=== PATIENT | female | born 1975 | race Caucasian/White ===

== ENCOUNTER 2019-10-30 14:33 | Emergency (ER) | payer OTHER ==
[~2019-10-30] VITALS: Ht 147.3 cm; Wt 99.8 kg
[~2019-10-30 14:33] MED LIST: BIRTH CONTROL PILL; CYMBALTA60 MG PO; PRILOSEC
[2019-10-30] MEDS ORDERED: COZAAR 25 MG TA25 M1 PO (14:40)
[2019-10-30] MEDS ORDERED: GERD MEDICATION (14:41)
[2019-10-30 15:07] LABS: ABSOLUTE EOSINOPHILS 0.3 thou/uL (0.0-0.7); ABSOLUTE LYMPHOCYTES 1.8 thou/uL (0.8-5.3); ABSOLUTE MONOCYTES 0.7 thou/uL (0.0-1.2); ABSOLUTE NEUTROPHILS 6.1 thou/uL (1.6-8.1); BASOPHILS 0.5 %; EOSINOPHILS 3.5 %; HEMATOCRIT 36.4 % (37.0-47.0); HEMOGLOBIN 11.6 gm/dL (12.0-15.0); LYMPHOCYTES 19.6 %; MCH 24.5 pg (26.0-34.0); MCHC 31.9 g/dL (28.0-37.0); MCV 76.9 fL (80.0-100.0); MONOCYTES 8.2 %; MPV 10.8 fl. (7.2-11.1); NUCLEATED RBCS 0 /100WBC; PLATELET COUNT* 224 thou/uL (150-400); POLYS 68.2 %; RBC 4.73 mil/uL (4.20-5.00); RDW-CV 15.2 % (10.5-14.5)
[2019-10-30 15:09] LABS: URINE BILIRUBIN NEGATIVE (Negative); URINE BLOOD TRACE (Negative); URINE CLARITY CLEAR; URINE COLOR YELLOW; URINE GLUCOSE-RANDOM NEGATIVE (Negative); URINE KETONES NEGATIVE (Negative); URINE LEUKOCYTES-REFLEX NEGATIVE (Negative); URINE NITRITE-REFLEX NEGATIVE (Negative); URINE PROTEIN NEGATIVE (Negative); URINE SPECIFIC GRAVITY <= 1.005 (1.005-1.030); URINE UROBILINOGEN 0.2 E.U./dl (0.2-1.0)
[2019-10-30 15:11] LABS: CALCIUM 8.6 mg/dL (8.5-10.1); CREATININE 1.1 mg/dL (0.6-1.3); POTASSIUM 3.5 mmol/L (3.5-5.1)
[2019-10-30 15:15] LABS: ALBUMIN 3.5 g/dL (3.4-5.0); APTT 26.8 Seconds (25.0-31.3); TOTAL BILIRUBIN 0.4 mg/dL (<0.1-1.0); TOTAL PROTEIN 8.4 g/dL (6.4-8.2)
--- NOTE | 2019-10-30 16:28 | EKG ---
[place] [address] ELECTROCARDIOGRAM REPORT Name: EVAN ACUNA Room: [facility]#: [id number] Admission: 10/30/19 Attend Phys: Discharge: Date of : 73 Date of Service: 10/30/19 1434 Report #: [id number] THIS REPORT FOR: //name// [facility] ED Test Date: 2019-10-30 Test Time: 14:34:45 Pat Name: EVAN ACUNA Department: Room: Gender: [employer] Dipper: SHANKAR : 1975 Requested By: Kimberly Cruz Order Number: [id number] MD: Varghese Díaz Measurements Intervals [place] Rate: 96 P: 45 [place]: 182 QRS: -8 QRSD: 100 T: 7 QT: 374 QTc: 473 Interpretive Statements Sinus rhythm Probable left atrial enlargement Abnormal R-wave progression, late transition Borderline ST depression, lateral leads No previous ECG available for comparison Electronically Signed On 10-30-2019 16:26:22 CDT by Varghese Díaz [email or web address] <ELECTRONICALLY SIGNED> By: Varghese Díaz MD, [facility] 10/30/19 1626 1434 1434 Varghese Díaz MD, [facility] /EPI
[2019-10-30 19:11] VITALS: BP 177/92
== END 2019-10-30 19:12 | disposition home or self-care (01) ==
LOC: M.ERS 14:33
PROVIDERS: Personal Emergency Response Attendant
DX: I16.0 Hypertensive urgency (principal); R20.2 Paresthesia of skin; K21.9 Gastro-esophageal reflux disease without esophagitis; I10 Essential (primary) hypertension; E78.5 Hyperlipidemia, unspecified; K31.84 Gastroparesis